=== PATIENT | male | born 1955 | race Caucasian/White ===

== ENCOUNTER 2018-12-01 13:07 | Outpatient (REF) | payer MEDICARE, MEDICAID, SELFPAY ==
[2018-12-01 20:21] LABS: HGB 14.3 g/dL (13.5-17.5); Mean Corp. HGB Concentration 32.5 g/dL (32.0-36.0); Mean Corpuscular Hemoglobin 28.4 pg (27.0-33.0); Mean Corpuscular Volume 87.5 fL (80-95); Mean Platelet Volume 11.7 fL (8.0-11.0); Platelet Count 248 x1000/uL (130-400); RBC 5.03 m/cumm (4.50-6.00); RBC Distribution Width 14.6 % (11.8-14.1); White Blood Cell Count 9.95 k/cumm (4.4-10.8)
[2018-12-01 20:29] LABS: ALT 53 U/L (12-78); AST 32 U/L (15-37); Albumin 3.6 g/dL (3.4-5.0); Alkaline Phosphatase 98 U/L (46-116); Anion Gap 7.1 mmol/L (3-11); BUN 23 mg/dL (7-18); Bilirubin, Total 0.4 mg/dL (0.2-1.0); CO2 31.9 mmol/L (21.0-32.0); CREATININE 1.13 mg/dL (0.70-1.30); Calcium 8.9 mg/dL (8.5-10.1); Chloride 104 mmol/L (98-107); Glucose 90 mg/dL (70-100); NT-proBNP 112 pg/mL; Potassium 4.6 mmol/L (3.5-5.1); Sodium 143 mmol/L (136-145); Total Protein 7.6 g/dL (6.4-8.2)
== END 2018-12-01 13:27 ==
LOC: NCHCN 13:07
PROVIDERS: PCP Internal Medicine; Visit Provider Registered Nurse
DX: I10 Essential (primary) hypertension (principal); R06.00 Dyspnea, unspecified; E66.9 Obesity, unspecified
CPT/HCPCS: 80053; 85027; 83880; 84443

== ENCOUNTER 2019-05-05 12:01 | Outpatient (REF) | payer MEDICARE, MEDICAID, SELFPAY ==
[2019-05-05 23:03] LABS: Calculated LDL 132 mg/dL; Cholesterol 195 mg/dL (50-200); HDL Cholesterol 36 mg/dL (40-60); Triglyceride 135 mg/dL (30-150)
[2019-05-07 10:56] LABS: Hep B Core Antibody Positive (NEGAT); Hepatitis B Surface Ab Positive; Hepatitis B Surface Ag Negative (NEGAT)
== END 2019-05-05 12:21 ==
LOC: NCHCN 12:01
PROVIDERS: PCP Internal Medicine; Visit Provider Registered Nurse
DX: Z13.6 Encounter for screening for cardiovascular disorders (principal); B18.1 Chronic viral hepatitis B without delta-agent
CPT/HCPCS: 80061; 83721; 86704; 86706; 87340

== ENCOUNTER 2020-12-13 15:56 | Outpatient (REF) | payer MEDICARE, MEDICAID, SELFPAY ==
[2020-12-13 22:45] LABS: ALT 41 U/L (16-63); AST 26 U/L (15-37); Alkaline Phosphatase 97 U/L (46-116); Anion Gap 9.8 mmol/L (3-11); BUN 20 mg/dL (7-18); Bilirubin, Total 0.4 mg/dL (0.2-1.0); CO2 27.2 mmol/L (21.0-32.0); Calcium 9.1 mg/dL (8.5-10.1); Chloride 104 mmol/L (98-107); Glucose 87 mg/dL (74-106); Potassium 4.4 mmol/L (3.5-5.1); Sodium 141 mmol/L (136-145); TSH (W/Ref FT4) 2.13 uIU/mL (0.36-3.74); Total Protein 7.6 g/dL (6.4-8.2)
== END 2020-12-13 15:57 | disposition home or self-care (01) ==
LOC: NCHCN 15:56
PROVIDERS: PCP Internal Medicine; Visit Provider Registered Nurse
DX: R60.0 Localized edema (principal); Z13.29 Encounter for screening for other suspected endocrine disorder
CPT/HCPCS: 80053; 84443

== ENCOUNTER 2021-02-12 14:52 | Outpatient (REF) | payer MEDICARE, MEDICAID, SELFPAY ==
[2021-02-12 22:14] LABS: Abs Immature Grans 0.08 10^3/uL (0.0-0.06); Absolute Basophil Count 0.05 10^3/uL (0.0-0.2); Absolute Eosinophil Count 0.21 10^3/uL (0.0-0.7); Absolute Lymphocyte Count 0.85 10^3/uL (1.2-3.4); Absolute Monocyte Count 0.71 10^3/uL (0.1-0.8); Basophils % 0.8; Eosinophils % 3.4; HCT 41.1 % (40.0-50.0); HGB 12.9 g/dL (13.5-17.5); Immature Grans % 1.3; Lymphocytes % 13.7; MCHC 31.4 % (32.0-36.0); MCV 89.3 fL (80-95); MPV 11.7 fL (8.0-11.0); Monocytes % 11.5; Neutrophils % 69.3; Nucleated RBC 0 %; Platelet Count 195 10^3/uL (130-400); RDW 15.4 % (11.8-14.1); RDW-SD 50.5 fL
[2021-02-12 22:33] LABS: NT-proBNP 413 pg/mL (<300)
[2021-02-14 13:09] LABS: COVID-19 RT-PCR UVMMC Result Negative (Negative)
== END 2021-02-12 14:53 | disposition home or self-care (01) ==
LOC: NCHCN 14:52
PROVIDERS: PCP Internal Medicine; Visit Provider Internal Medicine
DX: R50.9 Fever, unspecified (principal); Z20.822 Contact with and (suspected) exposure to COVID-19; R06.89 Other abnormalities of breathing
CPT/HCPCS: U0003; 83880; 85025

== ENCOUNTER 2021-05-09 20:32 | Outpatient (REF) | payer MEDICARE, MEDICAID, SELFPAY ==
[2021-05-09 21:46] LABS: HCT 41.4 % (40.0-50.0); HGB 13.1 g/dL (13.5-17.5); MCH 28.1 pg (27.0-33.0); MCHC 31.6 % (32.0-36.0); MCV 88.7 fL (80-95); MPV 11.7 fL (8.0-11.0); Platelet Count 239 10^3/uL (130-400); RBC 4.67 10^6/uL (4.36-5.78)
== END 2021-05-09 20:33 | disposition home or self-care (01) ==
LOC: NCHCN 20:32
PROVIDERS: PCP Internal Medicine; Visit Provider Registered Nurse
DX: D64.9 Anemia, unspecified (principal)
CPT/HCPCS: 85027

== ENCOUNTER 2021-08-08 10:52 | Outpatient (REF) | payer MEDICARE, MEDICAID, SELFPAY ==
[2021-08-08 14:32] LABS: HCT 45.2 % (40.0-50.0); HGB 14.5 g/dL (13.5-17.5); MCH 28.2 pg (27.0-33.0); MCHC 32.1 % (32.0-36.0); MCV 87.9 fL (80-95); Platelet Count 221 10^3/uL (130-400); RBC 5.14 10^6/uL (4.36-5.78); RDW 14.5 % (11.8-14.1); RDW-SD 46.6 fL; WBC 7.78 10^3/uL (4.4-10.8)
[2021-08-08 14:41] LABS: Calculated LDL 83 mg/dL (<100); Cholesterol 152 mg/dL (<200); HDL Cholesterol 38 mg/dL (40-60); Triglyceride 155 mg/dL (<150)
== END 2021-08-08 10:53 | disposition home or self-care (01) ==
LOC: NCHCN 10:52
PROVIDERS: PCP Internal Medicine; Visit Provider Registered Nurse
DX: E78.5 Hyperlipidemia, unspecified (principal); D64.9 Anemia, unspecified
CPT/HCPCS: 80061; 85027

== ENCOUNTER 2022-02-20 18:14 | Outpatient (REF) | payer MEDICARE, MEDICAID, SELFPAY ==
[2022-02-20 22:18] LABS: Abs Immature Grans 0.03 10^3/uL (0.0-0.06); Absolute Basophil Count 0.04 10^3/uL (0.0-0.2); Absolute Eosinophil Count 0.45 10^3/uL (0.0-0.7); Absolute Lymphocyte Count 2.16 10^3/uL (1.2-3.4); Absolute Monocyte Count 0.62 10^3/uL (0.1-0.8); Basophils % 0.5; Eosinophils % 5.8; HCT 45.2 % (40.0-50.0); HGB 14.8 g/dL (13.5-17.5); Immature Grans % 0.4; Lymphocytes % 27.7; MCH 28.5 pg (27.0-33.0); MCHC 32.7 % (32.0-36.0); MCV 87 fL (80-95); MPV 11.7 fL (8.0-11.0); Monocytes % 7.9; Neutrophils % 57.7; Platelet Count 321 10^3/uL (130-400); RBC 5.19 10^6/uL (4.36-5.78); RDW 14.1 % (11.8-14.1); RDW-SD 44.9 fL
== END 2022-02-20 18:15 | disposition home or self-care (01) ==
LOC: NCHCN 18:14
PROVIDERS: PCP Internal Medicine; Visit Provider Registered Nurse
DX: L03.115 Cellulitis of right lower limb (principal)
CPT/HCPCS: 85025

== ENCOUNTER 2023-09-18 15:09 | Outpatient (REF) | payer MEDICARE, MEDICAID, SELFPAY ==
[2023-09-18 14:02] LABS: HCT 43.2 % (40.0-50.0); MCH 28.3 pg (27.0-33.0); MCHC 32.4 % (32.0-36.0); MCV 87 fL (80-95); Platelet Count 231 10^3/uL (130-400); RBC 4.95 10^6/uL (4.36-5.78); RDW 14.5 % (11.8-14.1); RDW-SD 46.1 fL; WBC 9.02 10^3/uL (4.4-10.8)
[2023-09-18 14:15] LABS: ALT 30 U/L (16-63); AST 20 U/L (15-37); Albumin 3.9 g/dL (3.4-5.0); Alkaline Phosphatase 87 U/L (46-116); Anion Gap 6.2 mmol/L (3-11); BUN 19 mg/dL (7-18); Bilirubin, Total 0.5 mg/dL (0.2-1.0); CO2 29.8 mmol/L (21.0-32.0); Calcium 9.2 mg/dL (8.5-10.1); Chloride 106 mmol/L (98-107); Estimated GFR 82.49 (mL/min/1.73m2); Glucose 101 mg/dL (74-106); Potassium 4.6 mmol/L (3.5-5.1); Sodium 142 mmol/L (136-145); Total Protein 7.7 g/dL (6.4-8.2)
== END 2023-09-18 15:10 | disposition home or self-care (01) ==
LOC: NCHCN 15:09
PROVIDERS: PCP Internal Medicine; Visit Provider Family Medicine
DX: D64.9 Anemia, unspecified (principal); E78.5 Hyperlipidemia, unspecified
CPT/HCPCS: 80053; 85027

== ENCOUNTER 2023-12-03 13:20 | Outpatient (REF) | payer MEDICARE, MEDICAID, SELFPAY ==
[2023-12-03 14:47] LABS: Uric Acid 8.4 mg/dL (3.5-7.2)
== END 2023-12-03 13:21 | disposition home or self-care (01) ==
LOC: NCHCN 13:20
PROVIDERS: PCP Internal Medicine; Visit Provider Physician Assistant
DX: M79.671 Pain in right foot (principal)
CPT/HCPCS: 84550

== ENCOUNTER 2024-09-30 17:04 | Outpatient (REF) | payer MEDICARE, MEDICAID, SELFPAY ==
[2024-09-30 21:15] LABS: HCT 43.4 % (40.0-50.0); HGB 14.1 g/dL (13.5-17.5); MCH 28.4 pg (27.0-33.0); MCHC 32.5 % (32.0-36.0); MCV 87 fL (80-95); MPV 11.4 fL (8.0-11.0); Platelet Count 238 10^3/uL (130-400); RBC 4.97 10^6/uL (4.36-5.78); RDW 14.4 % (11.8-14.1); WBC 6.99 10^3/uL (4.4-10.8)
[2024-09-30 21:31] LABS: ALT 85 U/L (16-63); AST 50 U/L (15-37); Albumin 4.3 g/dL (3.4-5.0); Alkaline Phosphatase 95 U/L (46-116); Anion Gap 10.6 mmol/L (3-11); BUN 16 mg/dL (7-18); Bilirubin, Total 0.45 mg/dL (0.2-1.0); CO2 28.4 mmol/L (21.0-32.0); CREATININE 0.9 mg/dL (0.70-1.30); Chloride 106 mmol/L (98-107); Estimated GFR 93.03 (mL/min/1.73m2); Glucose 114 mg/dL (74-106); Potassium 4.3 mmol/L (3.5-5.1); Sodium 145 mmol/L (136-145); Total Protein 7.5 g/dL (6.4-8.2)
[2024-10-01 14:27] LABS: Iron 78 ug/dL (65-175); Total Iron Binding Capacity 363 ug/dL (250-450); Transferrin Sat 21 % (20-55)
[2024-10-01 14:49] LABS: Ferritin 123 ng/mL (26-388)
[2024-10-01 18:44] LABS: PSA, Screening 3.3 ng/mL (<=4.5)
[2024-10-05 08:50] LABS: Hepatitis A Antibody IgM Negative (Negative); Hepatitis B Core Antibody Positive (Negative); Hepatitis B surface Ag Negative (Negative); Hepatitis C Ab w Rflx HCV PCR Negative (Negative)
[2024-10-07 11:57] LABS: HBc IgM Ab, S Negative (Negative)
== END 2024-09-30 17:05 | disposition home or self-care (01) ==
LOC: NCHCN 17:04
PROVIDERS: PCP Internal Medicine; Visit Provider Family Medicine
DX: E66.9 Obesity, unspecified (principal); Z12.5 Encounter for screening for malignant neoplasm of prostate; R74.01 Elevation of levels of liver transaminase levels
CPT/HCPCS: 80053; 84153; 85027; 86704; 86709; 86803; 87340; 82728; 83540; 83550; 86705

== ENCOUNTER 2024-11-03 12:52 | Outpatient (REF) | payer MEDICARE, MEDICAID, SELFPAY | END 2024-11-03 12:53 | disposition home or self-care (01) | LOC: NCHCN 12:52 | PROVIDERS: PCP Internal Medicine; Visit Provider Family Medicine | DX: R32 Unspecified urinary incontinence (principal) | CPT/HCPCS: 87077; 87086; 87186 ==

== ENCOUNTER 2025-07-13 11:57 | Outpatient (REF) | payer MEDICARE, MEDICAID, SELFPAY | END 2025-07-13 11:58 | disposition home or self-care (01) | LOC: NCHCN 11:57 | PROVIDERS: PCP Internal Medicine; Visit Provider Family Medicine | DX: S81.802A Unspecified open wound, left lower leg, initial encounter (principal) | CPT/HCPCS: 87070; 87205 ==